=== PATIENT | male | born 1945 | race Caucasian/White ===

== ENCOUNTER 2020-02-01 16:47 | Inpatient (IN) | payer OTHER ==
[~2020-02-01] VITALS: Ht 185.4 cm; Wt 67.6 kg
[2020-02-01 17:57] VITALS: BP 119/84
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
[2020-02-01 19:27] VITALS: BP 136/102
--- NOTE | 2020-02-01 22:20 | NUR ---
PT RESTING IN BED UPON ARRIVAL TO SHIFT EATING IN BED. PT COMPLIANT WITH MEDICATIONS REQUESTED PAIN MED FOR HEADACHE AND PROVIDED. PT COOPERATIVE, CALM, GOOD EYE CONTACT.
[2020-02-02 09:25] VITALS: BP 125/86
[2020-02-02 09:35] LABS: ANION GAP 12 mmol/L (7-16); BUN 66 mg/dL (7-18); CALCIUM 9.3 mg/dL (8.5-10.1); CHLORIDE 93 mmol/L (98-107); CHOLESTEROL 137 mg/dL (<200); CO2 24 mmol/L (21-32); CREATININE 2.3 mg/dL (0.7-1.3); GLUCOSE 88 mg/dL (74-106); HDL CHOLESTEROL 42 mg/dL (>40); LDL CHOLESTEROL 76 mg/dL (<100); POTASSIUM 5.3 mmol/L (3.5-5.1); SODIUM 129 mmol/L (136-145); TC:HDL 3.3 Ratio (Not establshd); TRIGLYCERIDE 95 mg/dL (<150); VLDL 19 mg/dL (<40)
[2020-02-02 12:02] VITALS: BP 136/90
[2020-02-02 13:02] LABS: BE(vivo) -10.5 mmol/L (-2 to +3); HCO3 9.1 mmol/L (22.0-26.0); PO2 170.9 mmHg (80.0-100.0); pH 7.435 (7.360-7.450); sO2 99.3 % (92.0-98.0)
[2020-02-02 13:04] LABS: PCO2 13.9 mmHg (35.0-45.0)
--- NOTE | 2020-02-02 13:05 | NUR ---
SW spoke with spouse this am and she reported that pt was on hospice services with [facility] ( [facility]) since 04/2019 for CHF and enlarged heart. Pt sees Dr Pace for medications since last summer. Spouse reports that pt has increased confusion for the last 6 months and increaslingly unreasonable and " acting out" these past 2 weeks. Spouse feels guilty and wants to visit. This pt is here on a 96 hr hold for SI. The documents were faxed to Mr Smith and Patricia stevens this AM.
--- NOTE | 2020-02-02 13:11 | NUR ---
SW completed the intake assessment and TP.
--- NOTE | 2020-02-02 13:56 | NUR ---
Approximately 12:44, I was informed that Darryl had fallen. He was walking by himself. The bed alarm sounded and nurse Bonnie Allen responded and found him lying on his back on the floor. I was in the nursing station and was informed the patient had fallen. I notifed Dr. Erwin, he instructed to call rapid response. see report for details. Earlier in the day, the patient c/o of "being lethargic" and c/o of chest pain. An EKG was ordered see report for deatils. There was no injury noted. VS B/P 149/82 P 37 T 97.02 68%. Staff administered O2 at 2 L increasing to 4L. Rapid Response team initiated, patient was given nitro and transfered to medical. Upon my assessment his pupils were contricted, equal and non-ractive to light. Patient could not described how he fell. He stated he was dizzy and c/o of chest pain.
--- NOTE | 2020-02-02 14:16 | NUR ---
ASSUMED CARE OF PT AT 0700. PT RESTING IN BED ON ASSESSMENT. PT WAS UP IN THE DINNING ROOM FOR BREAKFAST AND WALKING AROUND THE UNIT. PT REFUSED MORNING MEDS NOTIFIED NNO GIVEN. PT STATED HE DID NOT FEEL GOOD, BUT DENIES ANY PAIN AT THE TIME. AROUND 1145 OR SO PT C/O CHEST PAIN AND SOA. VS TAKEN 136/90-82HR-22R -98%RA. HOSPITALIST CALLED EKG AND TROPONIN ORDRED. PSYCHIATRIST ALSO NOTIFIED.
--- NOTE | 2020-02-02 15:47 | EKG ---
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
[2020-02-02] MEDS ORDERED: INDERAL LA120 M1 (17:33)
[2020-02-02] MEDS ORDERED: LASIX 40 MG TAB40 MG PO (17:40)
[2020-02-02] MEDS ORDERED: PROSCAR 5MG TABL5 MG PO (17:41)
[2020-02-02] MEDS ORDERED: LEVSIN0.125 MG PO (17:43)
[2020-02-02] MEDS ORDERED: SERTRALINE HCL25 M1 PO (17:48)
[2020-02-02] MEDS ORDERED: ASA81BEC (17:49)
[2020-02-02] MEDS ORDERED: NYSTATIN100000 UNI SW&SWALLOW (17:50)
[2020-02-02] MEDS ORDERED: FIORINAL 50-321 EACH PO (17:51)
[2020-02-02] MEDS ORDERED: TYLENOL EXTRA500 MG PO (17:52)
[2020-02-02] MEDS ORDERED: FLONASE 0.05%50 MCG NARES (17:55)
[2020-02-02] MEDS ORDERED: PEPCID40 MG PO (17:56)
[2020-02-02] MEDS ORDERED: TUMS DUAL ACTI1 EACH PO (18:01)
[2020-02-02] MEDS ORDERED: EXCEDRIN MIGRA1 EAC1 PO (18:07)
[2020-02-02] MEDS ORDERED: TRIAMTERENE/HCT1 CA1 PO (18:08)
[2020-02-02] MEDS ORDERED: ULTRAM50 MG PO (18:12)
[2020-02-02] MEDS ORDERED: ATIVAN1 M1 PO (18:14)
[2020-02-02] MEDS ORDERED: ACYCLOVIR 400400 MG PO (18:17)
[2020-02-02] MEDS ORDERED: KLOR-CON 1010 MEQ PO (18:18)
[2020-02-02] MEDS ORDERED: ACCUPRIL40 MG PO (18:21)
[2020-02-02] MEDS ORDERED: ALLER-CHLOR4 MG PO (18:27)
[2020-02-02] MEDS ORDERED: MILK OF MA400 MG/5 M PO (18:28)
[2020-02-02] MEDS ORDERED: MOTION SICKNESS50 M1 PO (18:30)
[2020-02-02] MEDS ORDERED: CARAFATE1 GM PO (18:31)
[2020-02-02] MEDS ORDERED: MYLANTA GAS MIN42 MG PO (18:32)
[2020-02-02] MEDS ORDERED: DOXEPIN HC10 MG/1 ML PO (18:33)
[2020-02-02] MEDS ORDERED: DILAUDID1 MG/1 M1 PO (18:34)
[2020-02-02] MEDS ORDERED: DONNATAL TABL16.2 MG PO (18:35)
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
--- NOTE | 2020-02-03 18:20 | D ---
[facility] [place] [address] DISCHARGE SUMMARY Name: MARBELLA STOVALL Room #: 528B-A [facility] IN M.R.#: [id number] Admission: 02/01/20 Attend Phys: Gilmer Erwin DO Discharge: 02/02/20 Date of : 43 Report #: [id number] THIS REPORT FOR: cc: BRAULIO - No family physician/PCP FAM - No family physician/PCP Gilmer Erwin DO ~ THIS REPORT FOR: //name// CC: Gilmer RAMSEY physician/PCP DATE OF SERVICE: 02/02/2020 INPATIENT PSYCHIATRIC DISCHARGE SUMMARY ATTENDING PSYCHIATRIST: Gilmer Erwin DO. GEAR HOBBER OPERATOR: Gilmer Fuentes MD Please note, the patient was emergently discharged to the medical telemetry floor today. PSYCHIATRIC DIAGNOSES: Delirium secondary to general medical condition, namely decompensated congestive heart failure, acute kidney injury. Medical comorbidities for this patient include history of dementia, hypertension, hyperlipidemia, cardiomyopathy with reported EF of 20%; gastroesophageal reflux disease, chronic headaches. No discharge medications due to the cardiac emergency per the hospice as well as diet. LABORATORY DATA: Done on Geriatric Psychiatry included chemistry with sodium of 129, potassium 5.3, chloride 93, bicarbonate 24, anion gap 12, BUN 66, creatinine 2.3, estimated GFR 28, glucose 88, calcium 9.3. Troponin elevated 0.55. NT-proBNP was greater than 70,000; the highest number I have seen in my career that specific test. Additional laboratories; triglycerides 95, cholesterol 137, LDL 76, HDL 42. REASON FOR ADMISSION: Yesterday, a 74-year-old male apparently made statements to kill himself and his . He was sent over from [facility]. HOSPITAL COURSE: The patient was only on our unit essentially overnight. This morning, he reported chest pain while that has now been worked up by hospitalist. He fell in his room. Rapid Response was called. He was found to be quite weak, requiring oxygen as he was satting in the 80s even while at [address] Peck was consulted, emergent cardiac catheterization was arranged, at which time he was discharged from the unit to the telemetry floor, [address] [address] DISCHARGE SUMMARY Name: MARBELLA STOVALL Room #: 528B-A [facility] IN [facility]#: [id number] Admission: 02/01/20 Attend Phys: Gilmer Erwin DO Discharge: 02/02/20 Date of : 43 Report #: [id number] so I will further refer reader to the medical admission notes. Follow up in this case. PHYSICAL EXAMINATION: VITAL SIGNS: At time of discharge, temperature 36.8, pulse 82, respirations 22, BP 136/90, O2 sat 91%. MUSCULOSKELETAL: Supine in bed. Nonambulatory, oxygen monitoring equipment attached. MENTAL STATUS EXAMINATION: This is a well-developed, ill-appearing, under nourished male. BMI is 19.7. Attention fair. Concentration impaired. Speech nonsensical at times, able to answer very basic questions, during rapid response, which showed slight imnprovement at point of discharge. Unable to interview well for SI or HI, auditory, visual, or tactile hallucinations as well. Memory impaired, insight impaired, judgment impaired. Fund of knowledge below average. PROGNOSIS: For this patient is guarded to poor given the situational cognitive medical comorbidities. I understand as well. He was previously on hospice for CHF and I would recommend hospice status be reconsidered, however, that will be discussed further by the medical team, take care of the patient. The patient was a full code at time of discharge and on a 96-hour hold. Unfortunately, as he had apparently no DPOA and was against admission himself. <ELECTRONICALLY SIGNED> By: Gilmer Erwin DO 02/03/20 1820 2300 2325 Gilmer Erwin DO /nt
== END 2020-02-02 13:15 | disposition short-term general hospital (02) | DRG 881 ==
LOC: SBH 16:47
PROVIDERS: Nurse Practitioner Family; ADMIT Psychiatry & Neurology Psychiatry; ATTEND Psychiatry & Neurology Psychiatry
DX: F32.9 Major depressive disorder, single episode, unspecified (principal); N17.9 Acute kidney failure, unspecified; I11.0 Hypertensive heart disease with heart failure; R45.851 Suicidal ideations; I42.9 Cardiomyopathy, unspecified; R41.0 Disorientation, unspecified; I50.9 Heart failure, unspecified; F03.90 Unspecified dementia, unspecified severity, without behavioral disturbance, psychotic disturbance, mood disturbance, and anxiety; E78.5 Hyperlipidemia, unspecified; G47.00 Insomnia, unspecified; K21.9 Gastro-esophageal reflux disease without esophagitis; R51 Headache; Z82.49 Family history of ischemic heart disease and other diseases of the circulatory system; Z79.82 Long term (current) use of aspirin; Z79.891 Long term (current) use of opiate analgesic; Z79.899 Other long term (current) drug therapy
CPT/HCPCS: 10880

== ENCOUNTER 2020-02-02 13:37 | Inpatient (IN) | payer OTHER ==
[2020-02-02] VITALS (17 sets, daily range): BP systolic 127–157; BP diastolic 44–105
[~2020-02-02] VITALS: Ht 185.4 cm; Wt 69.9 kg
[2020-02-02] MEDS ORDERED: INDERAL LA120 M1 (17:33)
[2020-02-02] MEDS ORDERED: LASIX 40 MG TAB40 MG PO (17:40)
[2020-02-02] MEDS ORDERED: PROSCAR 5MG TABL5 MG PO (17:41)
[2020-02-02] MEDS ORDERED: LEVSIN0.125 MG PO (17:43)
[2020-02-02] MEDS ORDERED: SERTRALINE HCL25 M1 PO (17:48)
[2020-02-02] MEDS ORDERED: ASA81BEC (17:49)
[2020-02-02] MEDS ORDERED: NYSTATIN100000 UNI SW&SWALLOW (17:50)
[2020-02-02] MEDS ORDERED: FIORINAL 50-321 EACH PO (17:51)
[2020-02-02] MEDS ORDERED: TYLENOL EXTRA500 MG PO (17:52)
[2020-02-02] MEDS ORDERED: FLONASE 0.05%50 MCG NARES (17:55)
[2020-02-02] MEDS ORDERED: PEPCID40 MG PO (17:56)
[2020-02-02] MEDS ORDERED: TUMS DUAL ACTI1 EACH PO (18:01)
[2020-02-02] MEDS ORDERED: EXCEDRIN MIGRA1 EAC1 PO (18:07)
[2020-02-02] MEDS ORDERED: TRIAMTERENE/HCT1 CA1 PO (18:08)
[2020-02-02] MEDS ORDERED: ULTRAM50 MG PO (18:12)
[2020-02-02] MEDS ORDERED: ATIVAN1 M1 PO (18:14)
[2020-02-02] MEDS ORDERED: ACYCLOVIR 400400 MG PO (18:17)
[2020-02-02] MEDS ORDERED: KLOR-CON 1010 MEQ PO (18:18)
[2020-02-02] MEDS ORDERED: ACCUPRIL40 MG PO (18:21)
[2020-02-02] MEDS ORDERED: ALLER-CHLOR4 MG PO (18:27)
[2020-02-02] MEDS ORDERED: MILK OF MA400 MG/5 M PO (18:28)
[2020-02-02] MEDS ORDERED: MOTION SICKNESS50 M1 PO (18:30)
[2020-02-02] MEDS ORDERED: CARAFATE1 GM PO (18:31)
[2020-02-02] MEDS ORDERED: MYLANTA GAS MIN42 MG PO (18:32)
[2020-02-02] MEDS ORDERED: DOXEPIN HC10 MG/1 ML PO (18:33)
[2020-02-02] MEDS ORDERED: DILAUDID1 MG/1 M1 PO (18:34)
[2020-02-02] MEDS ORDERED: DONNATAL TABL16.2 MG PO (18:35)
[2020-02-03 05:42] LABS: HEMATOCRIT 58.6 % (42.0-52.0); HEMOGLOBIN 18.3 gm/dL (14.0-18.0); MCH 35.9 pg (26.0-34.0); MCHC 31.3 g/dL (28.0-37.0); MCV 114.8 fL (80.0-100.0); RBC 5.1 mil/uL (4.50-6.00); RDW 15.8 % (10.5-14.5); WBC 17.1 thou/uL (4.0-11.0)
--- NOTE | 2020-02-03 16:43 | EKG ---
[facility] [place] [address] ELECTROCARDIOGRAM REPORT Name: ASMITASTARMARBELLA Room #: 245-P ADM IN M.R.#: [id number] Admission: 02/02/20 Attend Phys: Gilmer Fuentes MD Discharge: Date of : 43 Report #: [id number] THIS REPORT FOR: cc: BRAULIO - No family physician/PCP FAM - No family physician/PCP Blaise Wang MD [facility] THIS REPORT FOR: //name// [facility] Test Date: 2020-02-03 Test Time: 07:32:46 Pat Name: MARBELLA STOVALL Department: Room: 245 P Gender: M Senior Structural Engineer: RADHA : 1945 Requested By: Stacy Thompson Order Number: [id number] MD: Blaise Wang Measurements Intervals [place] Rate: 69 P: 61 [place]: 172 QRS: -42 QRSD: 193 T: QT: 556 QTc: 596 Interpretive Statements Sinus rhythm Left bundle branch block Artifact in lead(s) I,II,III,aVR,aVL,aVF Compared to ECG 02/02/2020 12:22:31 No significant change was found Electronically Signed On 02-03-2020 16:42:39 CDT by Blaise Wang [email or web address] <ELECTRONICALLY SIGNED> By: Blaise Wang MD, [facility] 02/03/20 1642 0732 Blaise Wang MD, [facility] /EPI
--- NOTE | 2020-02-04 16:54 | CATHLAB ---
[facility] [place] [address] INVASIVE PROCEDURE REPORT Name: MARBELLA STOVALL Room #: 245-P DIS IN M.R.#: [id number] Admission: 02/02/20 Attend Phys: Gilmer Fuentes MD Discharge: 02/03/20 Date of : 43 Report #: [id number] THIS REPORT FOR: cc: FAM - No family physician/PCP FAM - No family physician/PCP Mark Peck MD [facility] ~ APPROVED REPORT Study performed: 02/02/2020 13:42:36 Patient Details Patient Status: In-Patient Room #: The patient is a 74 year-old male Event Personnel Mark Peck Produce Weigher, Sebastien Dutton RN, Soheila Pimentel Brown, Roberta Monitor, Sajan Samuels RN director supplier quality Performed Art Access - R femoral artery* Miguel Access - R femoral vein Right and Left Heart Cath w/or w/o Coronarie [id number] [facility] 12580 Initial Mod Sed Same Phys/QHP Gr 013575 17684 Mod Sed Same Phys/QHP Ea 360773 Hemostasis w/ Mynx Indication Chest pain Procedure Narrative The Right Groin^ was infiltrated with 1% Lidocaine subcutaneous anesthesia. A PINNACLE 6FR Sheath #[id number] sheath was inserted into the RFA^. Coronary angiography was performed using coronary diagnostic catheters. The right coronary system was accessed and visualized with a jr4 catheter. The left coronary system was accessed and visualized with a jl4 catheter. The left ventricle was accessed and visualized with a str pig catheter. Left ventriculogram was performed in 30 degree projection. There was no hematoma. Intraoperative Conscious Sedation Sedation start time: 1357 Case end Time: 1400 Versed 3 mg [facility] [address] [address] INVASIVE PROCEDURE REPORT Name: ASMITAOMARISALVADORMARBELLA DOWLING Room #: [facility] IN [facility].#: [id number] Admission: 02/02/20 Attend Phys: Gilmer Fuentes MD Discharge: 02/03/20 Date of : 43 Report #: [id number] Fluoro Time: 10.58 minutes Dose: DAP 5835.30 cGycm2 405 mGy Contrast Type and Amount: Visipaque 65 ml Hemodynamics The right atrial mean pressure is 25/36 mmHg. The right ventricular pressure is 79/20 mmHg. The pulmonary artery pressure is 60/42 mmHg with a mean of 51 mmHg. The mean pulmonary capillary wedge pressure is 35 mmHg. The aortic pressure is 143/91 mmHg with a mean of 115 mmHg. The cardiac output using thermo method is 1.35 L/min. The cardiac index using thermo method is 1.39 L/min/m2. Conclusion #1.Successful right heart catheterization with cardiac output by thermodilution. Severe elevation of pulmonary hypertension and pulmonary capillary wedge pressure see above hemodynamics #2 moderate left ventricular dilatation with severe global hypokinesis EF 10% range #3 left main mild disease giving rise to LAD and circumflex. #4 mild irregularities in this LAD is attenuated in the mid and distal vessel but no high-grade occlusive disease. #5 circumflex OM nondominant with an eccentric 40% proximal lesion #6 dominant right coronary with mild irregularity Recommendations and plan: Continue aggressive risk factor modification and aggressive diuresis. Transfer to ICU. Certainly guarded condition. 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 <ELECTRONICALLY SIGNED> By: Mark Peck MD, FACC 02/04/201653 53 53 Mark Peck MD, FACC /INF
== END 2020-02-03 20:02 | disposition hospice, home (50) | DRG 280 ==
LOC: ICU 13:37 → 3W 13:37 → ICU 15:09
PROVIDERS: Nurse Practitioner Adult Health; ADMIT Psychiatry & Neurology Psychiatry; ATTEND Hospitalist
PROC: B215YZZ Fluoroscopy of Left Heart using Other Contrast (ICD-10-PCS; principal; 2020-02-02)
PROC: B211YZZ Fluoroscopy of Multiple Coronary Arteries using Other Contrast (ICD-10-PCS; principal; 2020-02-02)
PROC: 4A023N8 Measurement of Cardiac Sampling and Pressure, Bilateral, Percutaneous Approach (ICD-10-PCS; principal; 2020-02-02)
DX: I21.3 ST elevation (STEMI) myocardial infarction of unspecified site (principal); I50.23 Acute on chronic systolic (congestive) heart failure; I13.0 Hypertensive heart and chronic kidney disease with heart failure and stage 1 through stage 4 chronic kidney disease, or unspecified chronic kidney disease; N17.9 Acute kidney failure, unspecified; R45.851 Suicidal ideations; I42.9 Cardiomyopathy, unspecified; I20.9 Angina pectoris, unspecified; G47.00 Insomnia, unspecified; Z66 Do not resuscitate; I44.7 Left bundle-branch block, unspecified; K59.00 Constipation, unspecified; F03.90 Unspecified dementia, unspecified severity, without behavioral disturbance, psychotic disturbance, mood disturbance, and anxiety; K21.9 Gastro-esophageal reflux disease without esophagitis; E78.5 Hyperlipidemia, unspecified; N18.9 Chronic kidney disease, unspecified; R51 Headache; F32.9 Major depressive disorder, single episode, unspecified; Z98.49 Cataract extraction status, unspecified eye; Z82.49 Family history of ischemic heart disease and other diseases of the circulatory system; Z87.891 Personal history of nicotine dependence
CPT/HCPCS: 10078; 10204